=== PATIENT | male | born 1965 | race Caucasian/White ===

== ENCOUNTER 2016-09-07 13:50 | Emergency (ER) | payer BC ==
[~2016-09-07] VITALS: Ht 175.3 cm; Wt 88.0 kg
[2016-09-07 13:53] VITALS: TEMP 37; Ht 175.3 cm; Wt 88.0 kg
[2016-09-07] MEDS ORDERED: SODIUM CHLORIDE 0.9% 1000ML 1,000 ML IV STA (14:06)
[2016-09-07] MEDS ORDERED: KETOROLAC TROMETHAMINE 30 MG/ML VIAL IV STA (14:06)
[2016-09-07] MEDS ORDERED: ONDANSETRON INJ 2 MG/ML 2 ML VIAL IV STA (14:06)
[2016-09-07] MEDS ORDERED: MoRPHine SULFATE 4 MG/ML 1 ML CARP\\VIAL IV STA (14:06)
[2016-09-07] MEDS ORDERED: AMLO-110 PO (14:26)
[2016-09-07] MEDS ORDERED: LISI-787 PO (14:26)
[2016-09-07 14:28] LABS: BASO % 0.3 %; BASO ABS # 0.04 K/uL (0-0.2); COMPLETE YES; EOS % 0.2 %; HEMATOCRIT 43.9 % (42-52); IG% 0.2 %; LYMPH % 8.2 %; LYMPH ABS # 1.11 K/uL (1.2-3.4); MEAN CELL VOLUME 83.9 fL (80-100); MEAN CORPUSCULAR HEMOGLOBIN 30.2 pg (25-34); MEAN PLATELET VOLUME 10.2 fL (7.4-10.4); MONO % 6.6 %; NEUT % 84.5 %; PLATELET COUNT 278 K/uL (130-400); RED BLOOD COUNT 5.23 M/uL (4.7-6.1); WHITE BLOOD COUNT 13.48 K/uL (4.8-10.8)
--- NOTE | 2016-09-07 14:45 | EMERGENCY ROOM VISIT NOTE ---
History First contact with patient: 13:56 Chief Complaint: KIDNEY STONE Stated Complaint: KIDNEY STONE History of Present Illness The patient is a 50 year old male who presents to the Emergency Room with complaints of "kidney stone". The patient states that he developed pain on the left side of his back around 5:30 AM, that is transient in nature. He rates the pain currently as a 5/10 but notes it was much higher earlier. He does carry a diagnosis of previous kidney stones, has had lithotripsy in the past and believes he has had about 10 stones total. His last kidney stone was in 2002. He follows with Dr. Buchanan with [facility]. He states that they were living in that region but have moved to this region recently. He follows with Dr. Chago Richardson also of that same area. He called this doctor who encouraged him to come into the emergency department for evaluation. He states this does feel like previous stones. There was also minimal pressure in his bladder earlier. Also slight dysuria. He didn't drink lots of fluids and now feels slightly better. He denies any abdominal pain, genital pain, taking medications recently for this, Flomax, chest pain, shortness of breath, fevers, chills, blood in his urine. Review of Systems Unremarkable Past Medical/Surgical History High blood pressure, pneumonia, kidney stone Family History Diabetes, heart disease, high blood pressure, cancer, kidney disease or stones. Social History Smoking Status: Never Smoker Social History: Patient lives at home with spouse. He admits to tobacco use but denies alcohol use. He is currently employed. Current/Historical Medications Scheduled Amlodipine (Norvasc), 5 MG PO DAILY Hctz/Lisinopril (Zestoretic 20-12.5 mg), 1 TAB PO BID Tamsulosin Hcl (Flomax), 0.4 MG PO DAILY Scheduled PRN Oxycodone Ir (Roxicodone Ir), 1-2 TAB PO Q4H PRN for Pain Allergies Coded Allergies: No Known Allergies (Unverified , 09/07/16) Physical Exam Vital Signs Date Time Temp Pulse Resp B/P Pulse Ox O2 Delivery O2 Flow Rate FiO2 09/07/16 17:01 81 16 131/76 97 09/07/16 15:08 94 16 146/87 96 Room Air 09/07/16 13:53 37.0 105 16 151/97 98 Physical Exam VITAL SIGNS - Vital signs and nursing notes were reviewed. Patient is afebrile , 151/97 blood pressure, slightly tachycardic at a rate of 105 beats per minutes and is saturating well on room air at 98%. GENERAL -50-year-old male appearing his stated age who is in no acute distress. Communicates well with provider and answers questions appropriately. SKIN - Without rashes. No petechial rashes. HEAD - NC/AT. EYES - Sclera anicteric. Palpebral conjunctiva pink and moist with no injection noted. EARS - No deformities of external structures noted on gross examination bilaterally. NOSE - Midline and without cyanosis. No epistaxis or purulent drainage noted. Septum midline without deviation or septal hematoma noted. MOUTH/OROPHARYNX - Without perioral cyanosis. NECK - Neck with FROM. No meningeal signs. LUNGS - Chest wall symmetric without accessory muscle use, intercostals retractions, or central cyanosis. Normal vesicular breath sounds CTA B/L. No wheezes, rales, or rhonchi appreciated. CARDIAC - RRR with S1/S2. No murmur, rubs, or gallops appreciated. ABDOMEN - Abdominal contour without pulsations or visible masses. BS normoactive all four quadrants. No tenderness, palpable masses, hepatosplenomegaly, or ascites noted. MUSCULOSKELETAL: Mild CVA tenderness to the left. EXTREMITIES - No clubbing or peripheral cyanosis. No pretibial edema present. + 5/5 strength noted in UE/LE bilaterally. NEUROLOGIC - Cranial nerves II through XII grossly intact. Sensory intact to light touch throughout. PSYCH - APt is very pleasant and interacts well with examiner. Medical Decision & Procedures ER Provider Diagnostic Interpretation: ABDOMEN AND PELVIS CT WITHOUT CONTRAST CT DOSE: 1095.21 mGycm HISTORY: Flank pain left flank pain TECHNIQUE: Multiaxial CT images of the abdomen and pelvis were performed without the use of intravenous and oral contrast according to the standard department stone protocol. COMPARISON STUDY: None. FINDINGS: Lung bases are clear. Liver spleen and pancreas are unremarkable. Right kidney is negative for calcification or hydronephrosis. The right adrenal gland is normal. Mild infiltrative changes of the left renal perinephric fat. There is moderate left hydronephrosis. There is a 2 mm nonobstructing calcification upper pole left kidney. At the left ureteropelvic junction is a 7 x 4 mm calculus. Left ureter is slightly distended to the left ureteral vesicle junction where an additional 3 mm calculus is present. Bladder is midline. Bowel pattern is nonobstructive. IMPRESSION: 1. Partially obstructing calcifications left upper urinary tract involving the left ureteral pelvic junction and left ureteral vesicle junction. 2. These measure 7 x 4 mm, and 3 mm respectively. 3. Mild/moderate left hydroureteronephrosis. Electronically signed by: Nicolas Langley M.D. 09/07/2016 3:00 PM Dictated Date/Time: 09/07/2016 2:54 PM Laboratory Results 09/07/16 14:14 Red Blood Count 5.23, Mean Corpuscular Volume 83.9, Mean Corpuscular Hemoglobin 30.2, Mean Corpuscular Hemoglobin Concent 36.0, Mean Platelet Volume 10.2, Neutrophils (%) (Auto) 84.5, Lymphocytes (%) (Auto) 8.2, Monocytes (%) (Auto) 6.6, Eosinophils (%) (Auto) 0.2, Basophils (%) (Auto) 0.3, Neutrophils # (Auto) 11.38, Lymphocytes # (Auto) 1.11, Monocytes # (Auto) 0.89, Eosinophils # (Auto) 0.03, Basophils # (Auto) 0.04 09/07/16 14:14 Test 09/07/16 14:14 09/07/16 15:15 White Blood Count 13.48 K/uL (4.8-10.8) Red Blood Count 5.23 M/uL (4.7-6.1) Hemoglobin 15.8 g/dL (14.0-18.0) Hematocrit 43.9 % (42-52) Mean Corpuscular Volume 83.9 fL (80-100) Mean Corpuscular Hemoglobin 30.2 pg (25-34) Mean Corpuscular Hemoglobin Concent 36.0 g/dl (32-36) Platelet Count 278 K/uL (130-400) Mean Platelet Volume 10.2 fL (7.4-10.4) Neutrophils (%) (Auto) 84.5 % Lymphocytes (%) (Auto) 8.2 % Monocytes (%) (Auto) 6.6 % Eosinophils (%) (Auto) 0.2 % Basophils (%) (Auto) 0.3 % Neutrophils # (Auto) 11.38 K/uL (1.4-6.5) Lymphocytes # (Auto) 1.11 K/uL (1.2-3.4) Monocytes # (Auto) 0.89 K/uL (0.11-0.59) Eosinophils # (Auto) 0.03 K/uL (0-0.5) Basophils # (Auto) 0.04 K/uL (0-0.2) RDW Standard Deviation 37.7 fL (36.4-46.3) RDW Coefficient of Variation 12.5 % (11.5-14.5) Immature Granulocyte % (Auto) 0.2 % Immature Granulocyte # (Auto) 0.03 K/uL (0.00-0.02) Anion Gap 12.0 mmol/L (3-11) Est Creatinine Clear Calc Drug Dose 81.8 ml/min Estimated GFR () 81.8 Estimated GFR (Non- 70.6 BUN/Creatinine Ratio 15.3 (10-20) Calcium Level 8.8 mg/dl (8.5-10.1) Total Bilirubin 0.7 mg/dl (0.2-1) Aspartate Amino Transf (AST/SGOT) 23 U/L (15-37) Alanine Aminotransferase (ALT/SGPT) 44 U/L (12-78) Alkaline Phosphatase 76 U/L (45-117) Total Protein 7.9 gm/dl (6.4-8.2) Albumin 4.4 gm/dl (3.4-5.0) Globulin 3.5 gm/dl (2.5-4.0) Albumin/Globulin Ratio 1.3 (0.9-2) Urine Color YELLOW Urine Appearance CLEAR (CLEAR) Urine pH 5.0 (4.5-7.5) Urine Specific [place]mer 1.007 (1.000-1.030) Urine Protein NEG (NEG) Urine Glucose (UA) NEG (NEG) Urine Ketones NEG (NEG) Urine Occult Blood 2+ (NEG) Urine Nitrite NEG (NEG) Urine Bilirubin NEG (NEG) Urine Urobilinogen NEG (NEG) Urine Leukocyte Esterase NEG (NEG) Urine WBC (Auto) 1-5 /hpf (0-5) Urine RBC (Auto) 0-4 /hpf (0-4) Urine Hyaline Casts (Auto) 1-5 /lpf (0-5) Urine Epithelial Cells (Auto) 0-5 /lpf (0-5) Urine Bacteria (Auto) NEG (NEG) Medications Administered Medications (Trade) Dose Ordered Sig/Zahra Route Start Time Stop Time Status Last Admin Dose Admin Sodium Chloride (Nss 1000ml) 1,000 ml @ 999 mls/hr Q1H1M STAT IV 09/07/16 14:06 09/07/16 15:06 DC 09/07/16 14:15 999 MLS/HR Ketorolac Tromethamine (Toradol Inj) 30 mg NOW STAT IV 09/07/16 14:06 09/07/16 14:10 DC 09/07/16 14:24 30 MG Ondansetron HCl (Zofran Inj) 4 mg NOW STAT IV 09/07/16 14:06 09/07/16 14:10 DC 09/07/16 14:24 4 MG Morphine Sulfate (MoRPHine SULFATE INJ) 4 mg NOW STAT IV 09/07/16 14:06 09/07/16 14:10 DC 09/07/16 14:23 4 MG Medical Decision Patient was seen and evaluated as above. After obtaining a thorough history and physical examination IV access was obtained and a CBC, CMP, CT of the abdomen and pelvis without for stone, was hydrated with 1 liter of normal saline , urine strainer was ordered, and for pain 30 mg of Toradol IV as well as 4 mg of Zofran and 4 mg of morphine was ordered. A UA clean catch culture if indicated was also obtained. Patient has a history of kidney stones and states this feels like previous stones. A CT scan of the abdomen was obtained since his last and was in 2002. Results as above. There are numerous stones. I did elect to discuss the case with Dr. Pedro the on-call urologist at 3:57 PM. I was instructed to place the patient on Flomax 0.4 mg daily, encouraged the patient to try and pass the stone by increasing fluid intake as well as to have him call the office tomorrow at [phone]. Patient was educated upon these findings. The medications did significantly improve his pain. He'll be placed on Flomax your 0.4 mg daily 7 days. He is to strain all urine and collect the stones for urologic evaluation. He is to return with any worsening or new/ concerning symptoms. He will be be prescribed OxyIR for his pain. He was educated upon management of today's findings. CBC revealed moderate leukocytosis at 13.48. Potassium was slightly low at 3.2. No significant evidence of kidney or liver failure. Urine revealed 2+ occult blood otherwise negative. Patient instructed to eat potassium rich foods. He was educated upon management of today's findings. He had questions answered prior to discharge, was educated upon worrisome symptoms in which to return and was discharged home in good condition. In the evaluation and treatment of this patient the following differential diagnoses were entertained: Intraorgan injury, renal calculi, pyelonephritis, among others. In the absence of fevers, chills and bacteria in the urine I do not suspect polynephritis and believe that renal calculi are the cause of the patient's pain at this time. [place] Drug Monitoring Program Search Results: patient reviewed within database, no issues identified Impression Primary Impression: Left ureteral calculus Additional Impression: Hypokalemia Departure Information Dispostion Home / Self-Care Condition GOOD Prescriptions Oxycodone Ir (Roxicodone Ir) 5 Mg Tab 1-2 TAB PO Q4H Y for Pain, #15 TAB For Initial Treatment Prov: Nader Khan PA-C 09/07/16 Tamsulosin Hcl (FLOMAX) 0.4 Mg Cap 0.4 MG PO DAILY for 7 Days, #7 CAP Prov: Nader Khan PA-C 09/07/16 Referrals Chago Weems M.D. (PCP) Elsy Pedro MD Patient Instructions Hypokalemia [place], [facility] Additional Instructions You have been treated in the Emergency Department today for a Kidney Stone ( Nephrolithiasis). You have received pain medicine in the emergency department which impairs your ability to operate a vehicle. It is illegal for you to drive after receiving these medicines. You have been prescribed Oxy IR to be used for pain control. This is a narcotic medication. You cannot drive or consume alcohol while on this medicine. This medicine should only be used for pain that cannot be controlled with over-the- counter pain medicines. Please consider taking a stool softener with this. You have been prescribed Flomax 0.4 mg to be taken ONCE daily. This medicine has been prescribed as it can help relax the smooth muscles of the urinary tract increasing transit time of the kidney stone. Please discontinue this after successful passing of the stone. Your potassium was found to be slightly low today. Please refer to the attached handout regarding foods that have potassium such as bananas and oranges. Please have this lab work repeated with your family doctor. For pain control, you can use the following [id number]-[id number] medicines (if >12 yo): - Regular strength (325mg/tab) Tylenol (acetaminophen) 2 tabs every 4-6 hours as needed. Do not exceed 12 tablets in a 24 hour period. Avoid taking more than 4 grams (4000 mg) of Tylenol per day. This includes any other sources of acetaminophen you may take on a regular basis. - Regular strength (200 mg/tab) Advil (ibuprofen) 1-2 tabs every 4-6 hours as needed. Do not exceed a dose of 3200 mg per day. You have been provided a strainer and specimen collection cup. You should strain your urine to collect any passed stones. Your stones can be placed into the specimen cup and taken to your Urologist for further evaluation. You have been provided the contact information for the on-call Urologist. You should contact the Urologist's office tomorrow to establish a follow-up appointment from today's Emergency Department visit. Return to the Emergency Department if your symptoms persist despite the treatment plan outlined above or if you develop the following symptoms: intractable pain, fever, chills, or large amounts of blood in your urine. Please drink plenty of fluids. Please return to the emergency department with any new/concerning symptoms. Problem Qualifiers
[2016-09-07 14:55] LABS: BUN/CREATININE RATIO 15.3 (10-20); CALCIUM 8.8 mg/dl (8.5-10.1); CREATININE 1.2 mg/dl (0.60-1.40); POTASSIUM 3.2 mmol/L (3.5-5.1)
[2016-09-07 14:57] LABS: ALB/GLOB RATIO 1.3 (0.9-2)
--- NOTE | 2016-09-07 15:01 | DIAGNOSTIC IMAGING REPORT ---
ABDOMEN AND PELVIS CT WITHOUT CONTRAST CT DOSE: 1095.21 mGycm HISTORY: Flank pain left flank pain TECHNIQUE: Multiaxial CT images of the abdomen and pelvis were performed without the use of intravenous and oral contrast according to the standard department stone protocol. COMPARISON STUDY: None. FINDINGS: Lung bases are clear. Liver spleen and pancreas are unremarkable. Right kidney is negative for calcification or hydronephrosis. The right adrenal gland is normal. Mild infiltrative changes of the left renal perinephric fat. There is moderate left hydronephrosis. There is a 2 mm nonobstructing calcification upper pole left kidney. At the left ureteropelvic junction is a 7 x 4 mm calculus. Left ureter is slightly distended to the left ureteral vesicle junction where an additional 3 mm calculus is present. Bladder is midline. Bowel pattern is nonobstructive. IMPRESSION: 1. Partially obstructing calcifications left upper urinary tract involving the left ureteral pelvic junction and left ureteral vesicle junction. 2. These measure 7 x 4 mm, and 3 mm respectively. 3. Mild/moderate left hydroureteronephrosis. Electronically signed by: Nicolas Langley M.D. 09/07/2016 3:00 PM Dictated Date/Time: 09/07/2016 2:54 PM
[2016-09-07 15:38] LABS: URINE APPEARANCE CLEAR (CLEAR); URINE BILIRUBIN NEG (NEG); URINE COLOR YELLOW; URINE EPITHELIAL CELL AUTO 0-5 /lpf (0-5); URINE NITRITE NEG (NEG); URINE SPECIFIC GRAVITY 1.007 (1.000-1.030); UROBILINOGEN NEG (NEG); ZZUR CULT IF INDIC CLEAN CATCH NO
[2016-09-07 15:49] LABS: MANUAL MICROSCOPIC REQUIRED? NO; REVIEW REQ? NO
[2016-09-07] MEDS ORDERED: OXYC1TAB3 PO (16:48)
[2016-09-07] MEDS ORDERED: TAMS0.4C38 PO (16:48)
[2016-09-07 17:01] VITALS: BP 131/76; PULSE 81; O2SAT 97
== END 2016-09-07 17:02 | disposition home or self-care (01) ==
LOC: C.EDB 13:52
DX: N20.1 Calculus of ureter (principal); E87.6 Hypokalemia; Z87.01 Personal history of pneumonia (recurrent)

== ENCOUNTER → 2016-10-20 | Outpatient (CLI) | payer BC ==
[~2016-10-20] MED LIST: AMLO-110 PO; LISI-787 PO; OXYC1TAB3 PO
[2016-10-20 13:24] LABS: HEMATOCRIT 42.7 % (42-52); MEAN CELL VOLUME 82.3 fL (80-100); MEAN CORPUSCULAR HEMOGLOBIN 29.7 pg (25-34); MEAN CORPUSCULAR HGB CONC 36.1 g/dl (32-36); PLATELET COUNT 287 K/uL (130-400); RED BLOOD COUNT 5.19 M/uL (4.7-6.1)
[2016-10-20 13:30] LABS: ALT/SGPT 47 U/L (12-78); BLOOD UREA NITROGEN 14 mg/dl (7-18); BUN/CREATININE RATIO 12.6 (10-20); CALCIUM 9.2 mg/dl (8.5-10.1); CARBON DIOXIDE 31 mmol/L (21-32); CHLORIDE 103 mmol/L (98-107); CHOLESTEROL 167 mg/dl (0-200); GLUCOSE 115 mg/dl (70-99); POTASSIUM 3.5 mmol/L (3.5-5.1); SODIUM 142 mmol/L (136-145)
[2016-10-20 13:33] LABS: ALB/GLOB RATIO 1.1 (0.9-2); ALKALINE PHOSPHATASE 76 U/L (45-117); AST/SGOT 22 U/L (15-37); CHOLESTEROL/HDL RATIO 3.2; HDL CHOLESTEROL 53 mg/dl; LDL CHOLESTEROL CALCULATED 96 mg/dl; TRIGLYCERIDES 92 mg/dl (0-150); VERY LOW DENSITY LIPOPROT CALC 18 mg/dl
[2016-10-20 13:50] LABS: ESTIMATED AVERAGE GLUCOSE 123 mg/dl; HA1C FLAG Normal (Normal)
== END | disposition home or self-care (01) ==
LOC: C.LABMFLN 08:04
PROVIDERS: ATTEND Family Medicine
DX: I10 Essential (primary) hypertension (principal); R73.09 Other abnormal glucose

== ENCOUNTER → 2016-12-22 | Outpatient (CLI) | payer BC ==
--- NOTE | 2016-12-22 09:31 | DIAGNOSTIC IMAGING REPORT ---
ORBIT RADIOGRAPHS 3 VIEWS HISTORY: Pre-MRI pre-MRI screening. COMPARISON: None. FINDINGS: There are no radiopaque foreign bodies identified within the orbits. IMPRESSION: No radiopaque foreign bodies identified within the orbits. Electronically signed by: Nicolas Langley M.D. 12/22/2016 9:30 AM Dictated Date/Time: 12/22/2016 9:29 AM
--- NOTE | 2016-12-22 10:35 | DIAGNOSTIC IMAGING REPORT ---
RIGHT KNEE MRI HISTORY: R KNEE PAIN/HX OF Welding, grinding METALS Right COMPARISON STUDY: None. TECHNIQUE: Multiplanar multisequence MRI of the right knee was performed according to standard department protocol without the use of contrast. FINDINGS: Menisci: Truncated appearance to the body of the lateral meniscus best seen on coronal image 20 consistent with a free edge tear. There is also an oblique tear extending to the undersurface of the posterior horn of the medial meniscus. Ligaments: The anterior and posterior cruciate ligaments are intact. The medial and lateral collateral ligaments are normal in appearance. Extensor mechanism: The quadriceps tendon and patellar ligament are intact. Articular cartilage and bone: The articular cartilage is intact, and normal marrow signal intensity is seen throughout the imaged osseous structures. Joint effusion: None. Soft tissues: Mild anterior subcutaneous edema. IMPRESSION: Bilateral meniscal tears as described above. Electronically signed by: Yves Haider M.D. 12/22/2016 10:34 AM Dictated Date/Time: 12/22/2016 10:30 AM
== END | disposition home or self-care (01) ==
LOC: C.MRI 08:58
PROVIDERS: ATTEND Family Medicine
DX: S83.241A Other tear of medial meniscus, current injury, right knee, initial encounter (principal); X58.XXXA Exposure to other specified factors, initial encounter